=== PATIENT | male | born 1945 | race Caucasian/White ===

== ENCOUNTER 2022-01-06 13:48 | Outpatient (CLI) | payer MEDICARE | END 2022-01-06 13:49 | disposition home or self-care (01) | LOC: BICCT 13:48 | PROVIDERS: ATTEND Nurse Practitioner Adult Health | DX: R47.89 Other speech disturbances (principal); R26.89 Other abnormalities of gait and mobility; R51.9 Headache, unspecified | CPT/HCPCS: 70450 ==

== ENCOUNTER 2022-01-18 13:01 | Inpatient (IN) | payer MEDICARE ==
[2022-01-18 13:45] LABS: Hemoglobin 12.9 g/dL (14.0-18.0); Mean Corpuscular Hemoglobin 33.2 pg (27.0-31.0); Mean Corpuscular Volume 97.6 fL (78.0-98.0); Mean Platelet Volume 6.7 fL (7.4-10.4); Platelet Count 192 thou/uL (130-400); RBC Distribution Width 12.7 % (11.5-14.5); Red Blood Cell (RBC) Count 3.87 mill/uL (4.70-6.10); White Blood Cell (WBC) Count 5.5 thou/uL (4.8-10.8)
[2022-01-18 13:49] LABS: ALT (SGPT) 19 U/L (8-55); AST (SGOT) 26 U/L (5-34); Albumin 3.7 g/dL (3.4-4.8); Alkaline Phosphatase 78 U/L (40-110); Anion Gap 11 mmol/L (10-20); BUN (Urea Nitrogen) 29 mg/dL (8.4-25.7); Bilirubin, Total 0.9 mg/dL (0.2-1.2); Calc. Creatinine Clearance 0 mL/min (70-130); Carbon Dioxide 27 mmol/L (23-31); Chloride 101 mmol/L (98-107); Globulin 3.3 g/dL (2.4-3.5); Glucose 99 mg/dL (83-110); Lipase 27 U/L (8-78); Potassium 4.4 mmol/L (3.5-5.1); Sodium 135 mmol/L (136-145)
[2022-01-18 13:53] LABS: Calcium 13.1 mg/dL (7.8-10.44)
[2022-01-18 14:01] LABS: Band 3 % (5-11); Eosinophils 7 % (0-10); Lymphocytes 11 % (21-51); MDiff Complete? YES; Monocytes 20 % (0-10); Neutrophil 53 % (42-75); Platelet Morphology Comment Appears Adequate; Polychromasia SLIGHT = 2-3 cells (100X) (0-2/hpf); Reactive Lymphocytes 6 % (0-10)
[2022-01-18 14:17] LABS: CKMB 3.9 ng/mL (0-6.6)
[2022-01-18 14:50] LABS: Actual Bicarbonate (HCO3v) 26 mEq/L (22-28); Analyzer IN Cardio ER; Base Excess 1.2 mEq/L (-2.0 to +3.0); Chloride (VBG) 103 mmol/L (98-106); Hemoglobin (Hb) 13.5 g/dL (12.6-17.4); Potassium (VBG) 4.26 mmol/L (3.70-5.30); Sodium 137.4 mmol/L (133-146); pH (venous) 7.43 (7.32-7.43)
[2022-01-18] MEDS ORDERED: Aspirin Chewable 81 MG TAB ONE (14:55)
[2022-01-18 15:10] LABS: Bacteria/HPF None Seen HPF (None Seen); Bilirubin Negative (Negative); Blood, Urine Trace (Negative); Clarity Clear (Clear); Glucose, Urine (Dipstick) Normal (Negative); Ketone, Urine Negative (Negative); Leukocyte Negative Leu/uL (Negative); Nitrite Negative (Negative); Protein, Urine (Dipstick) Negative (Neg-Trace); RBC/HPF 0-3 HPF (0-3); Specific Gravity, Urine 1.005 (1.002-1.036); Squamous Epithelial None Seen HPF (0-3); Urobilinogen Normal mg/dL (Less than 2); pH, Urine 6.5 (5.0-9.0)
[2022-01-18] MEDS ORDERED: HYDROcodone/Acetaminophen 5/325 mg Tablet PO PRN (16:09)
[2022-01-18] MEDS ORDERED: Acetaminophen 325 MG TAB PO PRN (16:09)
[2022-01-18 16:11] LABS: Creatinine, Urine 26.29 mg/dL (63-166); Protein, Urine Random Quant Less than 10 mg/dL (1-14); Sodium, Urine 40 mmol/L (Not Available); Urea Nitrogen, Random Urine 144 mg/dl
[2022-01-18] MEDS ORDERED: hydrALAZINE 20 MG/ML VIAL SLOW IVP PRN (16:14)
[2022-01-18] MEDS ORDERED: Calcitonin,Synthetic 200 UNITS/ML MDV SC SCH ×2 (16:15→21:30)
[2022-01-18] MEDS ORDERED: CALCITONIN SALMON SYNTHETIC SC SCH ×2 (16:30→21:30)
[2022-01-18] MEDS ORDERED: PRE FILLED SC SCH (16:30)
[2022-01-18] MEDS ORDERED: Amlodipine 5 MG TAB PO SCH (16:30)
[2022-01-18 18:00] VITALS: BMI 34.4
[2022-01-18] MEDS: Sodium Chloride 0.9% 1,000 ML IV SCH (18:07)
[2022-01-18 20:35] LABS: Anion Gap 12 mmol/L (10-20); BUN (Urea Nitrogen) 28 mg/dL (8.4-25.7); Calc. Creatinine Clearance 28 mL/min (70-130); Carbon Dioxide 25 mmol/L (23-31); Chloride 105 mmol/L (98-107); Glucose 105 mg/dL (83-110); Potassium 4.4 mmol/L (3.5-5.1); Sodium 138 mmol/L (136-145)
[2022-01-18 20:41] LABS: Calcium 12.6 mg/dL (7.8-10.44)
[2022-01-18 20:42] LABS: Troponin I 0.113 ng/mL (< 0.028)
[2022-01-19] MEDS: Sodium Chloride 0.9% 1,000 ML IV SCH ×3 (04:21→19:38)
[2022-01-19 06:16] LABS: ALT (SGPT) 20 U/L (8-55); AST (SGOT) 30 U/L (5-34); Albumin 3.5 g/dL (3.4-4.8); Alkaline Phosphatase 69 U/L (40-110); Anion Gap 9 mmol/L (10-20); BUN (Urea Nitrogen) 29 mg/dL (8.4-25.7); Bilirubin, Total 0.9 mg/dL (0.2-1.2); Calc. Creatinine Clearance 29 mL/min (70-130); Calcium 11.7 mg/dL (7.8-10.44); Carbon Dioxide 27 mmol/L (23-31); Chloride 107 mmol/L (98-107); Globulin 3.2 g/dL (2.4-3.5); Glucose 105 mg/dL (83-110); Potassium 4.1 mmol/L (3.5-5.1); Protein, Total 6.7 g/dL (5.8-8.1); Sodium 139 mmol/L (136-145)
[2022-01-19] MEDS ORDERED: Meclizine HCl 25 MG TAB PO PRN (07:52)
[2022-01-19] MEDS ORDERED: FISH OIL PO SCH (08:00)
[2022-01-19] MEDS ORDERED: [UNRECOGNIZED DRUG - OTHER] PO SCH (08:00)
[2022-01-19] MEDS ORDERED: FATTY ACIDS PO SCH (08:00)
[2022-01-19] MEDS ORDERED: OMEGA PO SCH (08:00)
[2022-01-19 08:33] LABS: SARS-CoV-2 PCR by NAA Not Detected (NotDetected)
[2022-01-19] MEDS: Aspirin 81 mg Enteric Coated Tablet PO SCH (08:56)
[2022-01-19] MEDS: Amlodipine 10 MG TAB PO SCH (08:57)
[2022-01-19] MEDS: Colchicine 0.6 MG TAB PO SCH (08:57)
[2022-01-19] MEDS: Enoxaparin Sodium 30 MG/0.3 ML SYRINGE SC SCH (08:57)
[2022-01-19] MEDS ORDERED: FLAXSEED OIL 1000 MG PO SCH ×2 (09:00)
[2022-01-19] MEDS ORDERED: Famotidine 20 MG TAB PO SCH (09:00)
[2022-01-19] MEDS ORDERED: Non-Formulary Item 1 EACH (Prednisolone Acetate/Pf [Prednisolone Acet 1% Eye Drop] 5 ML D OP SCH (09:00)
[2022-01-19] MEDS ORDERED: Amlodipine 5 MG TAB PO SCH ×2 (09:00)
[2022-01-19] MEDS ORDERED: Colchicine 0.6 MG TAB PO SCH (09:00)
[2022-01-19] MEDS ORDERED: Levothyroxine 175 MCG TAB PO SCH (09:00)
[2022-01-19 10:13] LABS: Reference Lab Name LABCORP
[2022-01-19] MEDS: prednisoLONE Acet 0.12% Ophth Soln 5 ml Bottle EA EYE SCH ×2 (10:17→21:19)
[2022-01-19] MEDS: Fish Oil 1,000 MG CAP PO SCH ×2 (15:25→17:46)
[2022-01-19] MEDS: Doxazosin Mesylate 4 MG TAB PO SCH (21:18)
[2022-01-20] MEDS: Sodium Chloride 0.9% 1,000 ML IV SCH ×3 (02:14→15:44)
[2022-01-20] MEDS: Levothyroxine 175 MCG TAB PO SCH (05:13)
[2022-01-20 08:19] LABS: Albumin 3.3 g/dL (3.4-4.8); Anion Gap 11 mmol/L (10-20); BUN (Urea Nitrogen) 28 mg/dL (8.4-25.7); BUN/Creatinine Ratio 9.93; Calc. Creatinine Clearance 30 mL/min (70-130); Calcium 10.5 mg/dL (7.8-10.44); Carbon Dioxide 21 mmol/L (23-31); Chloride 111 mmol/L (98-107); Glucose 86 mg/dL (83-110); Phosphorus 2.5 mg/dL (2.3-4.7); Potassium 3.8 mmol/L (3.5-5.1); Sodium 139 mmol/L (136-145)
[2022-01-20] MEDS: Enoxaparin Sodium 30 MG/0.3 ML SYRINGE SC SCH (08:56)
[2022-01-20] MEDS: Fish Oil 1,000 MG CAP PO SCH ×3 (08:56→17:29)
[2022-01-20] MEDS: Aspirin 81 mg Enteric Coated Tablet PO SCH (08:57)
[2022-01-20] MEDS: Amlodipine 10 MG TAB PO SCH (08:57)
[2022-01-20] MEDS: Colchicine 0.6 MG TAB PO SCH (08:57)
[2022-01-20] MEDS: prednisoLONE Acet 0.12% Ophth Soln 5 ml Bottle EA EYE SCH ×2 (08:57→19:58)
[2022-01-20] MEDS: Famotidine 20 MG TAB PO SCH (08:58)
[2022-01-20 11:17] LABS: % Free PSA 60.6 % (.); Total PSA 1.6 ng/mL (0.0-4.0)
[2022-01-20] MEDS: Sodium Bicarbonate 75 MEQ in Sodium Chloride 0.45% 1,000 ML IV SCH (17:29)
[2022-01-20] MEDS: Doxazosin Mesylate 4 MG TAB PO SCH (19:58)
[2022-01-21 05:23] LABS: Anion Gap 9 mmol/L (10-20); BUN (Urea Nitrogen) 27 mg/dL (8.4-25.7); BUN/Creatinine Ratio 10.55; Calc. Creatinine Clearance 34 mL/min (70-130); Calcium 10.1 mg/dL (7.8-10.44); Carbon Dioxide 23 mmol/L (23-31); Chloride 111 mmol/L (98-107); Glucose 83 mg/dL (83-110); Phosphorus 2.5 mg/dL (2.3-4.7); Potassium 3.5 mmol/L (3.5-5.1); Sodium 139 mmol/L (136-145)
[2022-01-21] MEDS: Levothyroxine 175 MCG TAB PO SCH (05:33)
[2022-01-21 06:57] LABS: Hemoglobin 11.4 g/dL (14.0-18.0); Mean Corpuscular HGB CONC 34.3 g/dL (32.0-36.0); Mean Corpuscular Hemoglobin 33.9 pg (27.0-31.0); Mean Corpuscular Volume 98.8 fL (78.0-98.0); Mean Platelet Volume 7.1 fL (7.4-10.4); Platelet Count 149 thou/uL (130-400); RBC Distribution Width 12.8 % (11.5-14.5); Red Blood Cell (RBC) Count 3.36 mill/uL (4.70-6.10); White Blood Cell (WBC) Count 4.9 thou/uL (4.8-10.8)
[2022-01-21] MEDS: Aspirin 81 mg Enteric Coated Tablet PO SCH (08:19)
[2022-01-21] MEDS: Fish Oil 1,000 MG CAP PO SCH ×3 (08:19→16:12)
[2022-01-21] MEDS: Enoxaparin Sodium 30 MG/0.3 ML SYRINGE SC SCH (08:19)
[2022-01-21] MEDS: Amlodipine 10 MG TAB PO SCH (08:19)
[2022-01-21] MEDS: Colchicine 0.6 MG TAB PO SCH (08:19)
[2022-01-21] MEDS: Famotidine 20 MG TAB PO SCH (08:19)
[2022-01-21] MEDS: prednisoLONE Acet 0.12% Ophth Soln 5 ml Bottle EA EYE SCH ×2 (08:20→20:19)
[2022-01-21] MEDS: Sodium Bicarbonate 75 MEQ in Sodium Chloride 0.45% 1,000 ML IV SCH (11:16)
[2022-01-21] MEDS: Doxazosin Mesylate 4 MG TAB PO SCH (20:18)
[2022-01-22] MEDS: Sodium Bicarbonate 75 MEQ in Sodium Chloride 0.45% 1,000 ML IV SCH (00:58)
[2022-01-22] MEDS: Levothyroxine 175 MCG TAB PO SCH (05:18)
[2022-01-22 06:16] LABS: Albumin 2.9 g/dL (3.4-4.8); Anion Gap 10 mmol/L (10-20); BUN (Urea Nitrogen) 24 mg/dL (8.4-25.7); BUN/Creatinine Ratio 9.52; Calc. Creatinine Clearance 34 mL/min (70-130); Calcium 10.2 mg/dL (7.8-10.44); Carbon Dioxide 25 mmol/L (23-31); Chloride 109 mmol/L (98-107); Glucose 77 mg/dL (83-110); Potassium 3.6 mmol/L (3.5-5.1); Sodium 140 mmol/L (136-145)
[2022-01-22] MEDS: prednisoLONE Acet 0.12% Ophth Soln 5 ml Bottle EA EYE SCH ×2 (08:09→20:33)
[2022-01-22] MEDS: Fish Oil 1,000 MG CAP PO SCH ×3 (08:10→17:20)
[2022-01-22] MEDS: Colchicine 0.6 MG TAB PO SCH (08:10)
[2022-01-22] MEDS: Famotidine 20 MG TAB PO SCH (08:10)
[2022-01-22] MEDS: Enoxaparin Sodium 30 MG/0.3 ML SYRINGE SC SCH (08:10)
[2022-01-22] MEDS: Amlodipine 10 MG TAB PO SCH (08:10)
[2022-01-22] MEDS: Aspirin 81 mg Enteric Coated Tablet PO SCH (08:10)
[2022-01-22 08:44] LABS: Magnesium 1.4 mg/dL (1.6-2.6)
[2022-01-22] MEDS ORDERED: Magnesium Sulfate In Water 4 GM in Premix Bag 1 BAG IVPB SCH (10:45)
[2022-01-22] MEDS: Lactated Ringer's 1,000 ML IV SCH ×2 (17:19)
[2022-01-22] MEDS: Doxazosin Mesylate 4 MG TAB PO SCH (20:31)
[2022-01-23] MEDS: Lactated Ringer's 1,000 ML IV SCH (01:16)
[2022-01-23 03:03] LABS: Troponin I 0.114 ng/mL (< 0.028)
[2022-01-23 03:33] VITALS: TEMP 97.8
[2022-01-23 03:40] LABS: Albumin 3.1 g/dL (3.4-4.8); Anion Gap 11 mmol/L (10-20); BUN (Urea Nitrogen) 26 mg/dL (8.4-25.7); BUN/Creatinine Ratio 10.04; Calc. Creatinine Clearance 33 mL/min (70-130); Calcium 10.5 mg/dL (7.8-10.44); Carbon Dioxide 24 mmol/L (23-31); Chloride 108 mmol/L (98-107); Glucose 84 mg/dL (83-110); Potassium 3.6 mmol/L (3.5-5.1); Sodium 139 mmol/L (136-145)
[2022-01-23] MEDS: Levothyroxine 175 MCG TAB PO SCH (06:38)
[2022-01-23] MEDS ORDERED: Zoledronic Acid 4 MG in Sodium Chloride 0.9% 100 ML IVPB SCH (06:45)
[2022-01-23 08:03] VITALS: BP 132/63
[2022-01-23] MEDS: Aspirin 81 mg Enteric Coated Tablet PO SCH (08:50)
[2022-01-23] MEDS: Amlodipine 10 MG TAB PO SCH (08:50)
[2022-01-23] MEDS: Fish Oil 1,000 MG CAP PO SCH (08:51)
[2022-01-23] MEDS: prednisoLONE Acet 0.12% Ophth Soln 5 ml Bottle EA EYE SCH (08:51)
[2022-01-23] MEDS: Enoxaparin Sodium 30 MG/0.3 ML SYRINGE SC SCH (08:51)
[2022-01-23] MEDS: Famotidine 20 MG TAB PO SCH (08:51)
[2022-01-23] MEDS: Colchicine 0.6 MG TAB PO SCH (08:51)
== END 2022-01-23 11:35 | disposition home or self-care (01) | DRG 640 ==
LOC: ERS 13:01 → NEURO 15:18
PROVIDERS: ADMIT Family Medicine; ATTEND Internal Medicine
DX: E83.52 Hypercalcemia (principal); Z20.822 Contact with and (suspected) exposure to COVID-19; G93.41 Metabolic encephalopathy; E87.1 Hypo-osmolality and hyponatremia; N17.9 Acute kidney failure, unspecified; E87.2 Acidosis; N18.30 Chronic kidney disease, stage 3 unspecified; E88.09 Other disorders of plasma-protein metabolism, not elsewhere classified; E03.9 Hypothyroidism, unspecified; I25.10 Atherosclerotic heart disease of native coronary artery without angina pectoris; I12.9 Hypertensive chronic kidney disease with stage 1 through stage 4 chronic kidney disease, or unspecified chronic kidney disease; E83.42 Hypomagnesemia; E86.9 Volume depletion, unspecified; R60.0 Localized edema; R94.6 Abnormal results of thyroid function studies; R79.89 Other specified abnormal findings of blood chemistry; R00.1 Bradycardia, unspecified; Z91.040 Latex allergy status; Z91.013 Allergy to seafood; Z91.09 Other allergy status, other than to drugs and biological substances; Z79.899 Other long term (current) drug therapy; Z79.890 Hormone replacement therapy; Z90.49 Acquired absence of other specified parts of digestive tract; Z95.5 Presence of coronary angioplasty implant and graft; Z98.890 Other specified postprocedural states
CPT/HCPCS: 36415; 70450; 71045; 71046; 74176; 78451; 80053; 80069; 81003; 81015; 82306; 82340; 82550; 82553; 82570; 82652; 82805; 83605; 83690; 83735; 83880; 83970; 84153; 84154; 84156; 84300; 84439; 84443; 84484; 84540; 85025; 85027; 85379; 93005; 93010; 93306; A9540; J0630; J1650; J3475; J3489; J3490; J7050; J7120; U0003; U0005

== ENCOUNTER 2022-04-12 15:48 | Inpatient (IN) | payer MEDICARE ==
[2022-04-12 16:21] LABS: #Eosinphils 0.4 thou/uL (0.0-0.7); #Lymphocytes 1.3 thou/uL (1.20-3.40); #Monocytes 0.7 thou/uL (0.11-0.59); #Neutrophils 2.6 thou/uL (1.40-6.50); %Basophils 0.9 % (0.0-1.0); %Eosinophils 7.9 % (0.0-10.0); %Lymphocytes 25.9 % (21.0-51.0); %Monocytes 13.7 % (0.0-10.0); %Neutrophils 51.5 % (42.0-75.0); Hemoglobin 11.7 g/dL (14.0-18.0); Mean Corpuscular Hemoglobin 33.2 pg (27.0-31.0); Mean Corpuscular Volume 97.4 fL (78.0-98.0); Mean Platelet Volume 6.8 fL (7.4-10.4); Platelet Count 190 thou/uL (130-400); RBC Distribution Width 12.5 % (11.5-14.5); Red Blood Cell (RBC) Count 3.52 mill/uL (4.70-6.10)
[2022-04-12 16:40] LABS: ALT (SGPT) 20 U/L (8-55); AST (SGOT) 27 U/L (5-34); Albumin 3.6 g/dL (3.4-4.8); Alkaline Phosphatase 84 U/L (40-110); Anion Gap 11 mmol/L (10-20); BUN (Urea Nitrogen) 37 mg/dL (8.4-25.7); Bilirubin, Total 0.4 mg/dL (0.2-1.2); Calc. Creatinine Clearance 0 mL/min (70-130); Carbon Dioxide 26 mmol/L (23-31); Chloride 103 mmol/L (98-107); Estimated GFR 13; Globulin 3.5 g/dL (2.4-3.5); Glucose 126 mg/dL (83-110); Potassium 4.3 mmol/L (3.5-5.1); Protein, Total 7.1 g/dL (5.8-8.1); Sodium 136 mmol/L (136-145)
[2022-04-12 16:45] LABS: Calcium 13.4 mg/dL (7.8-10.44)
[2022-04-12 17:43] LABS: Bacteria/HPF None Seen HPF (None Seen); Bilirubin Negative (Negative); Blood, Urine 2+ (Negative); Clarity Clear (Clear); Glucose, Urine (Dipstick) Normal (Negative); Ketone, Urine Negative (Negative); Leukocyte Negative Leu/uL (Negative); Nitrite Negative (Negative); Protein, Urine (Dipstick) 10 mg/dL (Neg-Trace); RBC/HPF 0-3 HPF (0-3); Specific Gravity, Urine 1.005 (1.002-1.036); Squamous Epithelial None Seen HPF (0-3); Urobilinogen Normal mg/dL (Less than 2); WBC/HPF 0-3 HPF (0-3)
[2022-04-12] MEDS ORDERED: Bisacodyl 10 MG SUPP PR PRN (20:02)
[2022-04-12] MEDS ORDERED: Bisacodyl 5 MG TAB PO PRN (20:02)
[2022-04-12] MEDS ORDERED: Ondansetron ODT 4 MG TAB PO PRN (20:02)
[2022-04-12] MEDS ORDERED: Guaifenesin DM 100-10/5 ML UDCUP PO PRN (20:02)
[2022-04-12] MEDS ORDERED: Ondansetron PF 4 MG/2 ML Vial IVP PRN (20:02)
[2022-04-12] MEDS ORDERED: Acetaminophen 325 MG TAB PO PRN (20:02)
[2022-04-12] MEDS ORDERED: Senokot S 8.6-50 MG TAB PO PRN (20:02)
[2022-04-12] MEDS ORDERED: Acetaminophen 650 MG Suppository PR PRN (20:02)
[2022-04-12] MEDS ORDERED: Calcitonin,Synthetic 200 UNITS/ML MDV SC SCH (20:15)
[2022-04-12] MEDS ORDERED: Sodium Chloride 0.9% 1,000 ML IV SCH (20:15)
[2022-04-12 21:24] VITALS: BMI 33.9
[2022-04-12] MEDS: Heparin 5,000 UNITS/ML VIAL SC SCH (21:51)
[2022-04-13 01:55] LABS: Creatinine, Urine Less than 20.00 mg/dL (63-166); Potassium, Urine Less than 10.0 mmol/L; Protein, Urine Random Quant Less than 10 mg/dL (1-14); Sodium, Urine 57 mmol/L (Not Available); Urea Nitrogen, Random Urine 97 mg/dl
[2022-04-13 04:31] LABS: #Basophils 0.1 thou/uL (0.0-0.2); #Eosinphils 0.3 thou/uL (0.0-0.7); #Lymphocytes 1.2 thou/uL (1.20-3.40); #Monocytes 0.8 thou/uL (0.11-0.59); #Neutrophils 4.8 thou/uL (1.40-6.50); %Basophils 0.9 % (0.0-1.0); %Eosinophils 4.3 % (0.0-10.0); %Monocytes 11.2 % (0.0-10.0); %Neutrophils 66.6 % (42.0-75.0); Hemoglobin 12.1 g/dL (14.0-18.0); Mean Corpuscular HGB CONC 34.1 g/dL (32.0-36.0); Mean Corpuscular Hemoglobin 33.6 pg (27.0-31.0); Mean Corpuscular Volume 98.5 fL (78.0-98.0); Mean Platelet Volume 6.9 fL (7.4-10.4); Platelet Count 197 thou/uL (130-400); RBC Distribution Width 12.7 % (11.5-14.5); Red Blood Cell (RBC) Count 3.59 mill/uL (4.70-6.10); White Blood Cell (WBC) Count 7.2 thou/uL (4.8-10.8)
[2022-04-13 04:56] LABS: ALT (SGPT) 17 U/L (8-55); AST (SGOT) 24 U/L (5-34); Albumin 3.4 g/dL (3.4-4.8); Alkaline Phosphatase 69 U/L (40-110); Anion Gap 12 mmol/L (10-20); BUN (Urea Nitrogen) 34 mg/dL (8.4-25.7); Bilirubin, Total 0.5 mg/dL (0.2-1.2); Calc. Creatinine Clearance 20 mL/min (70-130); Carbon Dioxide 22 mmol/L (23-31); Chloride 106 mmol/L (98-107); Estimated GFR 14; Globulin 3.2 g/dL (2.4-3.5); Glucose 104 mg/dL (83-110); Potassium 4.2 mmol/L (3.5-5.1); Protein, Total 6.6 g/dL (5.8-8.1); Sodium 136 mmol/L (136-145)
[2022-04-13 05:00] LABS: Calcium 12.1 mg/dL (7.8-10.44)
[2022-04-13 05:09] LABS: Free T4 (Free Thyroxine) 0.95 ng/dL (0.70-1.48); Thyroid Stimulating Hormone 0.1593 uIU/mL (0.35-4.94)
[2022-04-13 05:11] LABS: Vitamin D, 25 Hydroxy 15.4 ng/ml (> 30.0)
[2022-04-13] MEDS: Sodium Chloride 0.9% 1,000 ML IV SCH ×4 (07:04→23:17)
[2022-04-13] MEDS ORDERED: ZOLEDRONIC ACID IVPB SCH (09:00)
[2022-04-13] MEDS ORDERED: SODIUM CHLORIDE 0.9% IVPB SCH (09:00)
[2022-04-13] MEDS: Sodium Bicarbonate Tab 325 MG TAB PO SCH ×3 (09:39→21:26)
[2022-04-13] MEDS: Heparin 5,000 UNITS/ML VIAL SC SCH ×2 (09:40→21:26)
[2022-04-13] MEDS: Calcitonin,Synthetic 200 UNITS/ML MDV SC SCH (09:41)
[2022-04-14 05:13] LABS: Anion Gap 11 mmol/L (10-20); BUN (Urea Nitrogen) 33 mg/dL (8.4-25.7); BUN/Creatinine Ratio 8.44; Calc. Creatinine Clearance 22 mL/min (70-130); Calcium 10.4 mg/dL (7.8-10.44); Carbon Dioxide 19 mmol/L (23-31); Chloride 110 mmol/L (98-107); Estimated GFR 15; Glucose 79 mg/dL (83-110); Phosphorus 3.3 mg/dL (2.3-4.7); Potassium 3.9 mmol/L (3.5-5.1); Sodium 136 mmol/L (136-145)
[2022-04-14] MEDS: Sodium Bicarbonate 150 MEQ in Dextrose 5% in Water 1,000 ML IV SCH ×2 (09:00→21:51)
[2022-04-14] MEDS: Sodium Bicarbonate Tab 325 MG TAB PO SCH ×3 (09:01→20:53)
[2022-04-14] MEDS: Heparin 5,000 UNITS/ML VIAL SC SCH ×2 (09:01→20:54)
[2022-04-14] MEDS: Calcitonin,Synthetic 200 UNITS/ML MDV SC SCH (09:05)
[2022-04-14] MEDS ORDERED: Amlodipine 5 MG TAB PO SCH (09:45)
[2022-04-14 12:41] LABS: 24 Hr Creatinine 1056.51 mg/24 hr (950-2490); Creatinine, Urine 39.13 mg/dL (63-166)
[2022-04-15 04:50] LABS: Albumin 3.2 g/dL (3.4-4.8); Anion Gap 14 mmol/L (10-20); BUN (Urea Nitrogen) 32 mg/dL (8.4-25.7); BUN/Creatinine Ratio 8.77; Calc. Creatinine Clearance 23 mL/min (70-130); Calcium 10.6 mg/dL (7.8-10.44); Carbon Dioxide 23 mmol/L (23-31); Chloride 103 mmol/L (98-107); Estimated GFR 16; Glucose 91 mg/dL (83-110); Phosphorus 2.8 mg/dL (2.3-4.7); Potassium 3.8 mmol/L (3.5-5.1); Sodium 136 mmol/L (136-145)
[2022-04-15] MEDS: Sodium Bicarbonate 150 MEQ in Dextrose 5% in Water 1,000 ML IV SCH (06:40)
[2022-04-15] MEDS: Amlodipine 5 MG TAB PO SCH (10:26)
[2022-04-15] MEDS: Sodium Bicarbonate Tab 325 MG TAB PO SCH ×3 (10:27→20:36)
[2022-04-15] MEDS: Calcitonin,Synthetic 200 UNITS/ML MDV SC SCH (10:27)
[2022-04-15] MEDS: Heparin 5,000 UNITS/ML VIAL SC SCH ×2 (10:28→20:36)
[2022-04-15] MEDS: Sodium Chloride 0.9% 1,000 ML IV SCH (15:17)
[2022-04-16] MEDS: Sodium Chloride 0.9% 1,000 ML IV SCH ×3 (00:57→20:58)
[2022-04-16 05:00] LABS: Anion Gap 13 mmol/L (10-20); BUN (Urea Nitrogen) 30 mg/dL (8.4-25.7); BUN/Creatinine Ratio 8.55; Calc. Creatinine Clearance 24 mL/min (70-130); Calcium 10.2 mg/dL (7.8-10.44); Carbon Dioxide 22 mmol/L (23-31); Chloride 104 mmol/L (98-107); Estimated GFR 17; Glucose 83 mg/dL (83-110); Phosphorus 2.9 mg/dL (2.3-4.7); Potassium 3.5 mmol/L (3.5-5.1); Sodium 135 mmol/L (136-145)
[2022-04-16] MEDS: Heparin 5,000 UNITS/ML VIAL SC SCH ×2 (09:26→20:58)
[2022-04-16] MEDS: Sodium Bicarbonate Tab 325 MG TAB PO SCH ×3 (09:27→20:57)
[2022-04-16] MEDS: Amlodipine 5 MG TAB PO SCH (09:27)
[2022-04-17 05:27] LABS: Albumin 3.2 g/dL (3.4-4.8); Anion Gap 13 mmol/L (10-20); BUN (Urea Nitrogen) 27 mg/dL (8.4-25.7); BUN/Creatinine Ratio 8.28; Calc. Creatinine Clearance 26 mL/min (70-130); Calcium 9.9 mg/dL (7.8-10.44); Carbon Dioxide 20 mmol/L (23-31); Chloride 107 mmol/L (98-107); Estimated GFR 19; Glucose 73 mg/dL (83-110); Phosphorus 2.7 mg/dL (2.3-4.7); Potassium 3.5 mmol/L (3.5-5.1); Sodium 136 mmol/L (136-145)
[2022-04-17] MEDS ORDERED: Potassium Bicarbonate/Cit Ac 20 MEQ TAB PO SCH (09:30)
[2022-04-17] MEDS: Sodium Bicarbonate Tab 325 MG TAB PO SCH ×3 (10:06→22:00)
[2022-04-17] MEDS: Amlodipine 5 MG TAB PO SCH (10:07)
[2022-04-17 10:14] LABS: Magnesium 1.5 mg/dL (1.6-2.6)
[2022-04-17 12:34] LABS: #Eosinphils 0.2 thou/uL (0.0-0.7); #Lymphocytes 1.2 thou/uL (1.20-3.40); #Monocytes 0.8 thou/uL (0.11-0.59); #Neutrophils 3.7 thou/uL (1.40-6.50); %Basophils 0.6 % (0.0-1.0); %Eosinophils 3.5 % (0.0-10.0); %Lymphocytes 19.8 % (21.0-51.0); %Monocytes 13.8 % (0.0-10.0); %Neutrophils 62.4 % (42.0-75.0); Hemoglobin 10.3 g/dL (14.0-18.0); Mean Corpuscular HGB CONC 33.9 g/dL (32.0-36.0); Mean Corpuscular Hemoglobin 33.3 pg (27.0-31.0); Mean Corpuscular Volume 98.2 fL (78.0-98.0); Mean Platelet Volume 7.2 fL (7.4-10.4); Platelet Count 144 thou/uL (130-400); RBC Distribution Width 12.5 % (11.5-14.5); Red Blood Cell (RBC) Count 3.11 mill/uL (4.70-6.10); White Blood Cell (WBC) Count 5.9 thou/uL (4.8-10.8)
[2022-04-17] MEDS ORDERED: Magnesium 2 GM/50 ML(in water) 2 GM in Premix Bag 1 BAG IVPB SCH (13:15)
[2022-04-17] MEDS: Heparin 5,000 UNITS/ML VIAL SC SCH ×2 (13:58→22:01)
[2022-04-17 17:13] LABS: A/G Ratio 1.1 (0.7-1.7); Albumin 3.1 g/dL (2.9-4.4); Alpha 1 0.2 g/dL (0.0-0.4); Alpha 2 0.6 g/dL (0.4-1.0); Beta 0.7 g/dL (0.7-1.3); Gamma 1.3 g/dL (0.4-1.8); Globulin, Total 2.8 g/dL (2.2-3.9); M-Spike Not Observed g/dL (Not Observed)
[2022-04-17 17:13] LABS: Albumin, PEP 24hr Ur 17.5 % (NOT ESTAB.); Alpha-1-Globulin, PEP 24h Ur 6.8 % (NOT ESTAB.); Alpha-2-Globulin, PEP 24h Ur 18.9 % (NOT ESTAB.); Beta Globulin, PEP 24h Ur 39.1 % (NOT ESTAB.); Gamma Globulin, PEP 24h Ur 17.6 % (NOT ESTAB.); M-Spike, mg/24hr PEP Ur 98.4 mg/24 hr (Not Observed); M-Spike,% PEP 24hr Ur 26.4 % (Not Observed); Protein, Urine 13.8 mg/dL (Not Estab.)
[2022-04-17] MEDS: Sodium Chloride 0.9% 1,000 ML IV SCH (18:46)
[2022-04-18 05:13] LABS: Anion Gap 14 mmol/L (10-20); BUN (Urea Nitrogen) 30 mg/dL (8.4-25.7); BUN/Creatinine Ratio 8.82; Calc. Creatinine Clearance 25 mL/min (70-130); Carbon Dioxide 20 mmol/L (23-31); Chloride 105 mmol/L (98-107); Estimated GFR 18; Glucose 83 mg/dL (83-110); Phosphorus 2.1 mg/dL (2.3-4.7); Potassium 3.3 mmol/L (3.5-5.1); Sodium 136 mmol/L (136-145)
[2022-04-18] MEDS ORDERED: ceFAZolin 2 GM/Dextrose 50 ML IVPB ONE (06:42)
[2022-04-18] MEDS ORDERED: CEFAZOLIN 1 GM VIAL ONE (06:42)
[2022-04-18] MEDS ORDERED: Gentamicin 80 MG/2 ML VIAL ONE (06:42)
[2022-04-18] MEDS ORDERED: Lidocaine 1% (PF) 30 ML VIAL ONE (07:09)
[2022-04-18] MEDS ORDERED: Midazolam HCl 2 mg/2 ml Vial ONE (07:18)
[2022-04-18] MEDS: Potassium Bicarbonate/Cit Ac 20 MEQ TAB PO SCH ×2 (08:52→18:12)
[2022-04-18] MEDS: Nebivolol HCl 5 MG TAB PO SCH (08:53)
[2022-04-18] MEDS: Sodium Bicarbonate Tab 325 MG TAB PO SCH ×3 (08:53→21:49)
[2022-04-18] MEDS: PHOS-NAK 1 PKT PACK PO SCH ×4 (10:22→21:49)
[2022-04-19 04:54] LABS: Albumin 3.2 g/dL (3.4-4.8); Anion Gap 14 mmol/L (10-20); BUN (Urea Nitrogen) 26 mg/dL (8.4-25.7); BUN/Creatinine Ratio 7.72; Calc. Creatinine Clearance 25 mL/min (70-130); Calcium 9.9 mg/dL (7.8-10.44); Carbon Dioxide 20 mmol/L (23-31); Chloride 106 mmol/L (98-107); Estimated GFR 18; Glucose 89 mg/dL (83-110); Phosphorus 2.3 mg/dL (2.3-4.7); Potassium 3.6 mmol/L (3.5-5.1); Sodium 136 mmol/L (136-145)
[2022-04-19 08:09] LABS: INR-International Normal Ratio 1.1; Prothrombin Time 13.8 sec (12.0-14.7)
[2022-04-19 08:10] LABS: PTT 40.6 sec (22.9-36.1)
[2022-04-19] MEDS ORDERED: Sodium Bicarbonate 2.5 MEQ/5 ML VIAL ONE (08:45)
[2022-04-19] MEDS ORDERED: Midazolam HCl 2 mg/2 ml Vial ONE (08:45)
[2022-04-19] MEDS ORDERED: Fentanyl 100 MCG/2 ML VIAL ONE (08:45)
[2022-04-19] MEDS ORDERED: Potassium Bicarbonate/Cit Ac 20 MEQ TAB PO SCH (09:15)
[2022-04-19] MEDS: Sodium Bicarbonate Tab 325 MG TAB PO SCH (09:57)
[2022-04-19] MEDS: Nebivolol HCl 5 MG TAB PO SCH (09:57)
[2022-04-19 11:47] VITALS: BP 162/84; TEMP 98.6
[2022-04-19 16:13] LABS: Kappa Lambda Light Chain Ratio 1.64 (0.26-1.65); Kappa Light Chains 90.3 mg/L (3.3-19.4); Lambda Light Chain 55.1 mg/L (5.7-26.3)
[2022-04-20 19:13] LABS: QuantiFERON-TB Gold Plus Negative (Negative)
[2022-04-21 14:38] LABS: IgA - Total IgA (Sendout) 294 mg/dL (61-437); Immunoglobulin - G (Sendout) 1368 mg/dL (603-1613); Immunoglobulin - M (Sendout) 128 mg/dL (15-143)
== END 2022-04-19 13:30 | disposition home or self-care (01) | DRG 982 ==
LOC: ERS 15:48 → 2NO 19:04
PROVIDERS: ADMIT Internal Medicine; ATTEND Internal Medicine
PROC: 0JH606Z Insertion of Pacemaker, Dual Chamber into Chest Subcutaneous Tissue and Fascia, Open Approach (ICD-10-PCS; principal; 2022-04-18)
PROC: 02H63JZ Insertion of Pacemaker Lead into Right Atrium, Percutaneous Approach (ICD-10-PCS; 2022-04-18)
PROC: 02HK3JZ Insertion of Pacemaker Lead into Right Ventricle, Percutaneous Approach (ICD-10-PCS; 2022-04-18)
PROC: 07DR3ZX Extraction of Iliac Bone Marrow, Percutaneous Approach, Diagnostic (ICD-10-PCS; 2022-04-19)
PROC: 079T3ZX Drainage of Bone Marrow, Percutaneous Approach, Diagnostic (ICD-10-PCS; 2022-04-19)
DX: N17.9 Acute kidney failure, unspecified (principal); I50.32 Chronic diastolic (congestive) heart failure; I13.0 Hypertensive heart and chronic kidney disease with heart failure and stage 1 through stage 4 chronic kidney disease, or unspecified chronic kidney disease; E87.2 Acidosis; C90.00 Multiple myeloma not having achieved remission; Z20.822 Contact with and (suspected) exposure to COVID-19; E83.52 Hypercalcemia; I25.10 Atherosclerotic heart disease of native coronary artery without angina pectoris; R91.1 Solitary pulmonary nodule; R00.1 Bradycardia, unspecified; E87.6 Hypokalemia; E83.39 Other disorders of phosphorus metabolism; E83.42 Hypomagnesemia; K21.9 Gastro-esophageal reflux disease without esophagitis; N18.4 Chronic kidney disease, stage 4 (severe); E03.9 Hypothyroidism, unspecified; I25.2 Old myocardial infarction; Z95.5 Presence of coronary angioplasty implant and graft; Z90.49 Acquired absence of other specified parts of digestive tract; Z91.048 Other nonmedicinal substance allergy status; Z91.040 Latex allergy status; Z91.013 Allergy to seafood; Z79.899 Other long term (current) drug therapy; Z79.82 Long term (current) use of aspirin; Z79.02 Long term (current) use of antithrombotics/antiplatelets; Z79.890 Hormone replacement therapy; Z79.52 Long term (current) use of systemic steroids; Z82.49 Family history of ischemic heart disease and other diseases of the circulatory system; Z82.3 Family history of stroke; Z83.3 Family history of diabetes mellitus
CPT/HCPCS: 33208; 36415; 38222; 71045; 71250; 76770; 77002; 77075; 80048; 80053; 80069; 81003; 81015; 82164; 82232; 82306; 82436; 82570; 83735; 83883; 83970; 84133; 84155; 84156; 84165; 84166; 84300; 84439; 84443; 84540; 85025; 85097; 85610; 85652; 85730; 86140; 86334; 86480; 88184; 88185; 88237; 88264; 88280; 88305; 88311; 88313; 88341; 88342; 88365; 93005; 93010; 93798; 96360; 99152; 99153; C1785; C1898; J0630; J0690; J1580; J1644; J2001; J2250; J2405; J3010; J3475; J3489; J7050; J7070; U0003; U0005

== ENCOUNTER 2022-05-06 09:16 | Inpatient (IN) | payer MEDICARE, OTHER ==
[2022-05-06] MEDS ORDERED: Furosemide 20 MG/2 ML VIAL ONE (10:17)
[2022-05-06 10:31] LABS: #Basophils 0.1 thou/uL (0.0-0.2); #Eosinphils 0.4 thou/uL (0.0-0.7); #Lymphocytes 1.5 thou/uL (1.20-3.40); #Monocytes 0.6 thou/uL (0.11-0.59); #Neutrophils 3.1 thou/uL (1.40-6.50); %Basophils 1.1 % (0.0-1.0); %Eosinophils 6.4 % (0.0-10.0); %Lymphocytes 25.6 % (21.0-51.0); %Monocytes 11.4 % (0.0-10.0); %Neutrophils 55.6 % (42.0-75.0); Hemoglobin 11.1 g/dL (14.0-18.0); Mean Corpuscular Hemoglobin 34.7 pg (27.0-31.0); Mean Corpuscular Volume 99.1 fL (78.0-98.0); Mean Platelet Volume 6.9 fL (7.4-10.4); Platelet Count 169 thou/uL (130-400); RBC Distribution Width 13.5 % (11.5-14.5); Red Blood Cell (RBC) Count 3.21 mill/uL (4.70-6.10); White Blood Cell (WBC) Count 5.7 thou/uL (4.8-10.8)
[2022-05-06 10:53] LABS: ALT (SGPT) 14 U/L (8-55); AST (SGOT) 24 U/L (5-34); Albumin 3.5 g/dL (3.4-4.8); Alkaline Phosphatase 85 U/L (40-110); Anion Gap 13 mmol/L (10-20); BUN (Urea Nitrogen) 29 mg/dL (8.4-25.7); Bilirubin, Total 0.5 mg/dL (0.2-1.2); Calc. Creatinine Clearance 0 mL/min (70-130); Calcium 11.1 mg/dL (7.8-10.44); Carbon Dioxide 25 mmol/L (23-31); Chloride 103 mmol/L (98-107); Estimated GFR 13; Globulin 3.3 g/dL (2.4-3.5); Glucose 158 mg/dL (83-110); Potassium 3.4 mmol/L (3.5-5.1); Protein, Total 6.8 g/dL (5.8-8.1); Sodium 138 mmol/L (136-145)
[2022-05-06] MEDS ORDERED: Acetaminophen 325 MG TAB PO PRN (13:28)
[2022-05-06] MEDS ORDERED: Ondansetron ODT 4 MG TAB PO PRN (13:28)
[2022-05-06] MEDS ORDERED: Ondansetron PF 4 MG/2 ML Vial IVP PRN (13:28)
[2022-05-06] MEDS ORDERED: Fluticasone Propionate Nasal Spray 16 gm Bottle NASAL PRN (13:33)
[2022-05-06] MEDS ORDERED: Potassium Chloride 20 MEQ TAB PO SCH (13:52)
[2022-05-06 14:01] LABS: INR-International Normal Ratio 1.1; PTT 32.8 sec (22.9-36.1); Prothrombin Time 14.2 sec (12.0-14.7)
[2022-05-06 14:03] LABS: Phosphorus 3.1 mg/dL (2.3-4.7)
[2022-05-06] MEDS ORDERED: Alirocumab [Praluent Pen] 150 MG/ML Pen.Injctr SC SCH (14:15)
[2022-05-06 14:30] VITALS: BMI 33.5
[2022-05-06 14:50] LABS: SARS-CoV-2 NAA Rapid Test Not Detected (NotDetected)
[2022-05-06 15:19] LABS: Troponin I 0.109 ng/mL (< 0.028)
[2022-05-06] MEDS: Sodium Bicarbonate Tab 325 MG TAB PO SCH ×2 (15:34→20:39)
[2022-05-06] MEDS ORDERED: predniSONE 20 MG TAB PO SCH (15:45)
[2022-05-06] MEDS ORDERED: Nebivolol HCl 5 MG TAB PO SCH (15:48)
[2022-05-06] MEDS: hydrALAZINE 20 MG/ML VIAL SLOW IVP PRN (16:40)
[2022-05-06] MEDS ORDERED: Amlodipine 5 MG TAB PO SCH ×2 (17:30)
[2022-05-06] MEDS ORDERED: Sodium Chloride 0.9% 1,000 ML IV SCH (18:30)
[2022-05-06] MEDS: Doxazosin Mesylate 4 MG TAB PO SCH (20:41)
[2022-05-06] MEDS: Famotidine 20 MG TAB PO SCH (20:42)
[2022-05-06] MEDS ORDERED: Clopidogrel Bisulfate 75 MG TAB PO SCH ×2 (21:00)
[2022-05-07] MEDS: hydrALAZINE 20 MG/ML VIAL SLOW IVP PRN (02:56)
[2022-05-07 05:00] LABS: #Lymphocytes 1.4 thou/uL (1.20-3.40); #Monocytes 0.2 thou/uL (0.11-0.59); #Neutrophils 4.9 thou/uL (1.40-6.50); %Basophils 0.2 % (0.0-1.0); %Eosinophils 0.2 % (0.0-10.0); %Monocytes 3.1 % (0.0-10.0); %Neutrophils 74.5 % (42.0-75.0); Hemoglobin 12.5 g/dL (14.0-18.0); Mean Corpuscular HGB CONC 35.2 g/dL (32.0-36.0); Mean Corpuscular Hemoglobin 34.8 pg (27.0-31.0); Mean Corpuscular Volume 98.8 fL (78.0-98.0); Mean Platelet Volume 6.8 fL (7.4-10.4); Platelet Count 191 thou/uL (130-400); RBC Distribution Width 13.7 % (11.5-14.5); Red Blood Cell (RBC) Count 3.58 mill/uL (4.70-6.10); White Blood Cell (WBC) Count 6.5 thou/uL (4.8-10.8)
[2022-05-07 05:06] LABS: Anion Gap 17 mmol/L (10-20); BUN (Urea Nitrogen) 30 mg/dL (8.4-25.7); Calc. Creatinine Clearance 20 mL/min (70-130); Calcium 11.5 mg/dL (7.8-10.44); Carbon Dioxide 21 mmol/L (23-31); Chloride 104 mmol/L (98-107); Estimated GFR 14; Glucose 139 mg/dL (83-110); Potassium 3.8 mmol/L (3.5-5.1); Sodium 138 mmol/L (136-145)
[2022-05-07] MEDS: Sodium Bicarbonate 50 MEQ in Sodium Chloride 0.45% 1,000 ML IV SCH ×2 (08:16→18:42)
[2022-05-07] MEDS: Sodium Bicarbonate Tab 325 MG TAB PO SCH ×3 (08:23→20:29)
[2022-05-07] MEDS: Colchicine 0.6 MG TAB PO SCH (08:23)
[2022-05-07] MEDS: Levothyroxine 150 MCG TAB PO SCH (08:24)
[2022-05-07] MEDS: Amlodipine 10 MG TAB PO SCH (08:25)
[2022-05-07] MEDS: Nebivolol HCl 5 MG TAB PO SCH (08:25)
[2022-05-07] MEDS: Fish Oil 1,000 MG CAP PO SCH (08:25)
[2022-05-07] MEDS: Famotidine 20 MG TAB PO SCH ×2 (08:25→20:30)
[2022-05-07] MEDS ORDERED: Aspirin 81 mg Enteric Coated Tablet PO SCH ×2 (09:00)
[2022-05-07] MEDS ORDERED: Nebivolol HCl 5 MG TAB PO SCH (09:00)
[2022-05-07] MEDS ORDERED: Amlodipine 5 MG TAB PO SCH ×2 (09:00)
[2022-05-07] MEDS ORDERED: predniSONE 20 MG TAB PO SCH (09:45)
[2022-05-07] MEDS ORDERED: Sodium Chloride 0.9% 1,000 ML IV SCH ×2 (11:30)
[2022-05-07] MEDS: Doxazosin Mesylate 4 MG TAB PO SCH (20:31)
[2022-05-08 05:14] LABS: #Basophils 0.1 thou/uL (0.0-0.2); #Lymphocytes 1.1 thou/uL (1.20-3.40); #Monocytes 0.7 thou/uL (0.11-0.59); #Neutrophils 5.3 thou/uL (1.40-6.50); %Basophils 1.5 % (0.0-1.0); %Eosinophils 0.1 % (0.0-10.0); %Lymphocytes 15.1 % (21.0-51.0); %Monocytes 9.8 % (0.0-10.0); %Neutrophils 73.6 % (42.0-75.0); Hemoglobin 10.1 g/dL (14.0-18.0); Mean Corpuscular HGB CONC 33.7 g/dL (32.0-36.0); Mean Corpuscular Hemoglobin 33.7 pg (27.0-31.0); Mean Platelet Volume 7.1 fL (7.4-10.4); Platelet Count 146 thou/uL (130-400); RBC Distribution Width 13.7 % (11.5-14.5); Red Blood Cell (RBC) Count 3.01 mill/uL (4.70-6.10); White Blood Cell (WBC) Count 7.3 thou/uL (4.8-10.8)
[2022-05-08 05:36] LABS: Anion Gap 14 mmol/L (10-20); BUN (Urea Nitrogen) 41 mg/dL (8.4-25.7); Calc. Creatinine Clearance 21 mL/min (70-130); Calcium 10.3 mg/dL (7.8-10.44); Carbon Dioxide 23 mmol/L (23-31); Chloride 104 mmol/L (98-107); Estimated GFR 15; Glucose 117 mg/dL (83-110); Potassium 3.6 mmol/L (3.5-5.1); Sodium 137 mmol/L (136-145)
[2022-05-08] MEDS: predniSONE 20 MG TAB PO SCH (09:11)
[2022-05-08] MEDS: Amlodipine 10 MG TAB PO SCH (09:12)
[2022-05-08] MEDS: Fish Oil 1,000 MG CAP PO SCH (09:13)
[2022-05-08] MEDS: Levothyroxine 150 MCG TAB PO SCH (09:14)
[2022-05-08] MEDS: Sodium Bicarbonate Tab 325 MG TAB PO SCH ×3 (09:14→20:46)
[2022-05-08] MEDS: Nebivolol HCl 5 MG TAB PO SCH (09:14)
[2022-05-08] MEDS: Colchicine 0.6 MG TAB PO SCH (09:25)
[2022-05-08] MEDS: Famotidine 20 MG TAB PO SCH (09:25)
[2022-05-08] MEDS ORDERED: Polyethylene Glycol 3350 17 GM Packet PO PRN (12:53)
[2022-05-08] MEDS ORDERED: hydrALAZINE 20 MG/ML VIAL SLOW IVP PRN (13:07)
[2022-05-08] MEDS: Folic Acid 1 MG TAB PO SCH (20:46)
[2022-05-08] MEDS: Doxazosin Mesylate 4 MG TAB PO SCH (20:46)
[2022-05-08] MEDS: Cyanocobalamin (Vitamin B-12) 1,000 MCG TAB PO SCH (20:46)
[2022-05-08] MEDS ORDERED: Famotidine 20 MG TAB PO SCH (21:00)
[2022-05-09 04:47] LABS: #Lymphocytes 1.4 thou/uL (1.20-3.40); #Monocytes 0.6 thou/uL (0.11-0.59); #Neutrophils 4.6 thou/uL (1.40-6.50); %Basophils 0.1 % (0.0-1.0); %Eosinophils 0.1 % (0.0-10.0); %Lymphocytes 21.5 % (21.0-51.0); %Monocytes 9.5 % (0.0-10.0); %Neutrophils 68.8 % (42.0-75.0); Hemoglobin 10.4 g/dL (14.0-18.0); Mean Corpuscular HGB CONC 33.9 g/dL (32.0-36.0); Mean Corpuscular Hemoglobin 33.5 pg (27.0-31.0); Mean Corpuscular Volume 98.6 fL (78.0-98.0); Mean Platelet Volume 7.1 fL (7.4-10.4); Platelet Count 149 thou/uL (130-400); RBC Distribution Width 13.6 % (11.5-14.5); White Blood Cell (WBC) Count 6.7 thou/uL (4.8-10.8)
[2022-05-09 05:06] LABS: Anion Gap 14 mmol/L (10-20); BUN (Urea Nitrogen) 45 mg/dL (8.4-25.7); Calc. Creatinine Clearance 22 mL/min (70-130); Calcium 9.8 mg/dL (7.8-10.44); Carbon Dioxide 23 mmol/L (23-31); Chloride 106 mmol/L (98-107); Estimated GFR 15; Glucose 109 mg/dL (83-110); Potassium 3.5 mmol/L (3.5-5.1); Sodium 139 mmol/L (136-145)
[2022-05-09] MEDS: Colchicine 0.6 MG TAB PO SCH (09:12)
[2022-05-09] MEDS: Amlodipine 10 MG TAB PO SCH (09:12)
[2022-05-09] MEDS: predniSONE 20 MG TAB PO SCH (09:12)
[2022-05-09] MEDS: Nebivolol HCl 5 MG TAB PO SCH (09:13)
[2022-05-09] MEDS: Sodium Bicarbonate Tab 325 MG TAB PO SCH ×3 (09:13→21:15)
[2022-05-09] MEDS: Famotidine 20 MG TAB PO SCH (09:13)
[2022-05-09] MEDS: Fish Oil 1,000 MG CAP PO SCH (09:13)
[2022-05-09] MEDS: Levothyroxine 150 MCG TAB PO SCH (09:13)
[2022-05-09] MEDS: Sodium Bicarbonate 50 MEQ in Sodium Chloride 0.45% 1,000 ML IV SCH ×2 (10:04→22:15)
[2022-05-09] MEDS ORDERED: Potassium Chloride 20 MEQ TAB PO SCH (17:00)
[2022-05-09] MEDS: Cyanocobalamin (Vitamin B-12) 1,000 MCG TAB PO SCH (21:15)
[2022-05-09] MEDS: Folic Acid 1 MG TAB PO SCH (21:15)
[2022-05-09] MEDS: Doxazosin Mesylate 4 MG TAB PO SCH (21:16)
[2022-05-10 05:03] LABS: #Lymphocytes 1.5 thou/uL (1.20-3.40); #Monocytes 0.6 thou/uL (0.11-0.59); #Neutrophils 3.3 thou/uL (1.40-6.50); %Basophils 0.3 % (0.0-1.0); %Eosinophils 0.2 % (0.0-10.0); %Lymphocytes 27.2 % (21.0-51.0); %Monocytes 11.7 % (0.0-10.0); %Neutrophils 60.6 % (42.0-75.0); Mean Corpuscular HGB CONC 34.8 g/dL (32.0-36.0); Mean Corpuscular Hemoglobin 34.8 pg (27.0-31.0); Mean Platelet Volume 7.2 fL (7.4-10.4); Platelet Count 145 thou/uL (130-400); RBC Distribution Width 13.2 % (11.5-14.5); Red Blood Cell (RBC) Count 3.17 mill/uL (4.70-6.10); White Blood Cell (WBC) Count 5.4 thou/uL (4.8-10.8)
[2022-05-10 05:25] LABS: Anion Gap 12 mmol/L (10-20); BUN (Urea Nitrogen) 42 mg/dL (8.4-25.7); Calc. Creatinine Clearance 25 mL/min (70-130); Calcium 9.5 mg/dL (7.8-10.44); Carbon Dioxide 23 mmol/L (23-31); Chloride 106 mmol/L (98-107); Estimated GFR 18; Glucose 92 mg/dL (83-110); Potassium 3.3 mmol/L (3.5-5.1); Sodium 138 mmol/L (136-145)
[2022-05-10] MEDS: Levothyroxine 150 MCG TAB PO SCH (05:37)
[2022-05-10] MEDS ORDERED: Potassium Chloride 20 MEQ TAB PO SCH (06:00)
[2022-05-10] MEDS: Amlodipine 10 MG TAB PO SCH (08:16)
[2022-05-10] MEDS: Colchicine 0.6 MG TAB PO SCH (08:17)
[2022-05-10] MEDS: Nebivolol HCl 5 MG TAB PO SCH (08:17)
[2022-05-10] MEDS: Famotidine 20 MG TAB PO SCH (08:17)
[2022-05-10] MEDS: predniSONE 20 MG TAB PO SCH (08:17)
[2022-05-10] MEDS: Sodium Bicarbonate Tab 325 MG TAB PO SCH ×3 (08:17→20:24)
[2022-05-10] MEDS: Fish Oil 1,000 MG CAP PO SCH (08:17)
[2022-05-10 09:36] LABS: Magnesium 1.8 mg/dL (1.6-2.6)
[2022-05-10] MEDS: Cyanocobalamin (Vitamin B-12) 1,000 MCG TAB PO SCH (20:24)
[2022-05-10] MEDS: Folic Acid 1 MG TAB PO SCH (20:24)
[2022-05-10] MEDS: Doxazosin Mesylate 4 MG TAB PO SCH (20:24)
[2022-05-11 05:06] LABS: #Lymphocytes 1.6 thou/uL (1.20-3.40); #Monocytes 0.7 thou/uL (0.11-0.59); #Neutrophils 3.1 thou/uL (1.40-6.50); %Basophils 0.4 % (0.0-1.0); %Eosinophils 0.2 % (0.0-10.0); %Monocytes 13.3 % (0.0-10.0); %Neutrophils 57.2 % (42.0-75.0); Hemoglobin 11.1 g/dL (14.0-18.0); Mean Corpuscular HGB CONC 33.1 g/dL (32.0-36.0); Mean Corpuscular Hemoglobin 33.1 pg (27.0-31.0); Mean Corpuscular Volume 99.8 fL (78.0-98.0); Mean Platelet Volume 7.1 fL (7.4-10.4); Platelet Count 156 thou/uL (130-400); RBC Distribution Width 13.3 % (11.5-14.5); Red Blood Cell (RBC) Count 3.35 mill/uL (4.70-6.10); White Blood Cell (WBC) Count 5.4 thou/uL (4.8-10.8)
[2022-05-11 05:25] LABS: Anion Gap 14 mmol/L (10-20); BUN (Urea Nitrogen) 44 mg/dL (8.4-25.7); Calc. Creatinine Clearance 25 mL/min (70-130); Calcium 9.5 mg/dL (7.8-10.44); Carbon Dioxide 21 mmol/L (23-31); Chloride 107 mmol/L (98-107); Estimated GFR 18; Glucose 89 mg/dL (83-110); Potassium 3.5 mmol/L (3.5-5.1); Sodium 138 mmol/L (136-145)
[2022-05-11] MEDS ORDERED: Potassium Chloride 20 MEQ TAB PO SCH (06:30)
[2022-05-11] MEDS: Levothyroxine 150 MCG TAB PO SCH (06:50)
[2022-05-11] MEDS: Amlodipine 10 MG TAB PO SCH (08:40)
[2022-05-11] MEDS: Colchicine 0.6 MG TAB PO SCH (08:40)
[2022-05-11] MEDS: Famotidine 20 MG TAB PO SCH (08:40)
[2022-05-11] MEDS: Fish Oil 1,000 MG CAP PO SCH (08:41)
[2022-05-11] MEDS: Sodium Bicarbonate Tab 325 MG TAB PO SCH ×2 (08:41→15:23)
[2022-05-11] MEDS: Nebivolol HCl 5 MG TAB PO SCH (08:41)
[2022-05-11] MEDS: predniSONE 20 MG TAB PO SCH (08:41)
[2022-05-11] MEDS ORDERED: Fentanyl 100 MCG/2 ML VIAL ONE (09:42)
[2022-05-11] MEDS ORDERED: Sodium Bicarbonate 2.5 MEQ/5 ML VIAL ONE (09:42)
[2022-05-11 16:09] VITALS: BP 142/77; TEMP 97.7
== END 2022-05-11 18:54 | disposition home or self-care (01) | DRG 682 ==
LOC: ERS 09:16 → 2SW 14:01 → OBSVTOIN 05-08 14:13
PROVIDERS: ADMIT Internal Medicine; ATTEND Internal Medicine
PROC: 0TB03ZX Excision of Right Kidney, Percutaneous Approach, Diagnostic (ICD-10-PCS; principal; 2022-05-11)
DX: N17.9 Acute kidney failure, unspecified (principal); G93.41 Metabolic encephalopathy; E87.2 Acidosis; I50.32 Chronic diastolic (congestive) heart failure; I13.0 Hypertensive heart and chronic kidney disease with heart failure and stage 1 through stage 4 chronic kidney disease, or unspecified chronic kidney disease; N18.4 Chronic kidney disease, stage 4 (severe); I25.10 Atherosclerotic heart disease of native coronary artery without angina pectoris; E03.9 Hypothyroidism, unspecified; E83.52 Hypercalcemia; E87.6 Hypokalemia; R00.1 Bradycardia, unspecified; I16.0 Hypertensive urgency; R91.1 Solitary pulmonary nodule; N40.0 Benign prostatic hyperplasia without lower urinary tract symptoms; R77.8 Other specified abnormalities of plasma proteins; Z20.822 Contact with and (suspected) exposure to COVID-19; E66.9 Obesity, unspecified; Z68.34 Body mass index [BMI] 34.0-34.9, adult; I25.2 Old myocardial infarction; Z91.040 Latex allergy status; Z91.013 Allergy to seafood; Z91.041 Radiographic dye allergy status; Z95.5 Presence of coronary angioplasty implant and graft; Z79.899 Other long term (current) drug therapy; Z79.82 Long term (current) use of aspirin; Z79.890 Hormone replacement therapy; Z95.0 Presence of cardiac pacemaker; Z98.890 Other specified postprocedural states; Z90.49 Acquired absence of other specified parts of digestive tract; Z82.3 Family history of stroke; Z86.2 Personal history of diseases of the blood and blood-forming organs and certain disorders involving the immune mechanism
CPT/HCPCS: 36415; 50200; 77002; 80048; 80053; 83735; 83880; 84100; 84484; 85025; 85610; 85730; 88329; 93005; 96361; 96374; 96375; 96376; G0378; J0360; J1940; J3010; J7512; U0002

== ENCOUNTER 2023-04-15 00:36 | Observation (INO) | payer MEDICARE ==
[2023-04-15] MEDS ORDERED: Aspirin Chewable 81 MG TAB ONE (01:06)
[2023-04-15] MEDS ORDERED: Nitroglycerin 0.4 MG TAB 1 EACH ONE (01:06)
[2023-04-15 01:35] LABS: #Eosinphils 0.1 thou/uL (0.0-0.7); #Monocytes 0.8 thou/uL (0.11-0.59); #Neutrophils 3.3 thou/uL (1.40-6.50); %Basophils 0.7 % (0.0-1.0); %Eosinophils 2.4 % (0.0-10.0); %Lymphocytes 27.6 % (21.0-51.0); %Neutrophils 56.1 % (42.0-75.0); Hematocrit 39.7 % (42.0-52.0); Hemoglobin 13.3 g/dL (14.0-18.0); Mean Corpuscular HGB CONC 33.5 g/dL (32.0-36.0); Mean Corpuscular Hemoglobin 32.5 pg (27.0-31.0); Mean Corpuscular Volume 97.1 fl (78.0-98.0); Mean Platelet Volume 8.8 fL (7.4-10.4); Platelet Count 149 10x3/uL (130-400); RBC Distribution Width 14.6 % (11.5-14.5); Red Blood Cell (RBC) Count 4.09 mill/uL (4.70-6.10); White Blood Cell (WBC) Count 5.8 10x3/uL (4.8-10.8)
[2023-04-15 01:59] LABS: ALT (SGPT) 18 U/L (8-55); AST (SGOT) 22 U/L (5-34); Albumin 3.9 g/dL (3.4-4.8); Alkaline Phosphatase 72 U/L (40-110); Anion Gap 14 mmol/L (10-20); BUN (Urea Nitrogen) 34 mg/dL (8.4-25.7); Bilirubin, Total 0.4 mg/dL (0.2-1.2); Calc. Creatinine Clearance 0 mL/min (70-130); Calcium 9.8 mg/dL (7.8-10.44); Carbon Dioxide 23 mmol/L (23-31); Chloride 108 mmol/L (98-107); Estimated GFR 24; Globulin 3.2 g/dL (2.4-3.5); Glucose 102 mg/dL (83-110); Lipase 54 U/L (8-78); Potassium 4.4 mmol/L (3.5-5.1); Protein, Total 7.1 g/dL (5.8-8.1); Sodium 141 mmol/L (136-145)
[2023-04-15] MEDS ORDERED: Acetaminophen 325 MG TAB PO PRN (03:10)
[2023-04-15] MEDS ORDERED: Senokot S 8.6-50 MG TAB PO PRN (03:10)
[2023-04-15] MEDS ORDERED: Calcium Carbonate 500 MG ChewTAB PO PRN (03:10)
[2023-04-15] MEDS ORDERED: Ondansetron ODT 4 MG TAB PO PRN (03:10)
[2023-04-15 04:09] VITALS: BMI 36.6
[2023-04-15 04:46] LABS: #Basophils 0.1 thou/uL (0.0-0.2); #Eosinphils 0.2 thou/uL (0.0-0.7); #Monocytes 0.8 thou/uL (0.11-0.59); #Neutrophils 3.1 thou/uL (1.40-6.50); %Basophils 0.8 % (0.0-1.0); %Eosinophils 2.8 % (0.0-10.0); %Lymphocytes 31.6 % (21.0-51.0); %Monocytes 13.8 % (0.0-10.0); %Neutrophils 50.8 % (42.0-75.0); Hemoglobin 13.3 g/dL (14.0-18.0); Mean Corpuscular HGB CONC 34.1 g/dL (32.0-36.0); Mean Corpuscular Hemoglobin 33.1 pg (27.0-31.0); Mean Platelet Volume 8.8 fL (7.4-10.4); Platelet Count 140 10x3/uL (130-400); RBC Distribution Width 14.6 % (11.5-14.5); Red Blood Cell (RBC) Count 4.02 mill/uL (4.70-6.10)
[2023-04-15] MEDS ORDERED: Nitroglycerin 0.4 MG TAB (25 Tab Bottle) SL PRN (04:49)
[2023-04-15 05:01] LABS: Anion Gap 13 mmol/L (10-20); BUN (Urea Nitrogen) 32 mg/dL (8.4-25.7); Calc. Creatinine Clearance 37 mL/min (70-130); Calcium 9.2 mg/dL (7.8-10.44); Carbon Dioxide 23 mmol/L (23-31); Chloride 107 mmol/L (98-107); Estimated GFR 26; Glucose 77 mg/dL (83-110); Sodium 139 mmol/L (136-145)
[2023-04-15 05:06] LABS: Troponin I Less than 0.010 ng/mL (< 0.028)
[2023-04-15] MEDS ORDERED: Lidocaine 2% Viscous Solution 10 ML, Aluminum & Magnesium Hydroxide 30 ML SSW SCH (05:15)
[2023-04-15] MEDS ORDERED: Levothyroxine 150 MCG TAB PO SCH (06:00)
[2023-04-15 07:26] LABS: Troponin I 0.018 ng/mL (< 0.028)
[2023-04-15] MEDS ORDERED: Aspirin 81 mg Enteric Coated Tablet PO SCH (08:00)
[2023-04-15] MEDS ORDERED: Sodium Bicarbonate Tab 325 MG TAB PO SCH (08:00)
[2023-04-15] MEDS ORDERED: Amlodipine 5 MG TAB PO SCH (08:00)
[2023-04-15] MEDS ORDERED: Nebivolol HCl 5 MG TAB PO SCH (08:00)
[2023-04-15] MEDS ORDERED: Fish Oil 1,000 MG CAP PO SCH (08:00)
[2023-04-15] MEDS ORDERED: Empagliflozin 25 MG TAB PO SCH (08:00)
[2023-04-15] MEDS ORDERED: predniSONE 5 MG TAB PO SCH (08:00)
[2023-04-15] MEDS ORDERED: Famotidine 20 MG TAB PO SCH (09:00)
[2023-04-15] MEDS ORDERED: Aspirin Chewable 81 MG TAB PO SCH (09:00)
[2023-04-15] MEDS ORDERED: ADENOSINE 60 MG/20 ML SDV ONE (11:29)
[2023-04-15] MEDS ORDERED: Cholecalciferol 1,000 UNITS (25 MCG) TAB PO SCH (12:00)
[2023-04-15 12:55] VITALS: BP 132/84; TEMP 97.7
[2023-04-15] MEDS ORDERED: Ferrous Sulfate 325 MG TAB PO SCH (17:00)
[2023-04-15] MEDS ORDERED: Clopidogrel Bisulfate 75 MG TAB PO SCH (17:00)
[2023-04-15] MEDS ORDERED: Doxazosin Mesylate 4 MG TAB PO SCH (21:00)
== END 2023-04-15 15:30 | disposition home or self-care (01) ==
LOC: ERS 00:36 → 2NO 02:33
PROVIDERS: ADMIT Student in an Organized Health Care Education/Training Program; ATTEND Internal Medicine
DX: I13.0 Hypertensive heart and chronic kidney disease with heart failure and stage 1 through stage 4 chronic kidney disease, or unspecified chronic kidney disease (principal); I50.30 Unspecified diastolic (congestive) heart failure; N18.9 Chronic kidney disease, unspecified; E03.9 Hypothyroidism, unspecified; I25.10 Atherosclerotic heart disease of native coronary artery without angina pectoris; Z91.048 Other nonmedicinal substance allergy status; Z91.013 Allergy to seafood; Z79.02 Long term (current) use of antithrombotics/antiplatelets; Z79.82 Long term (current) use of aspirin; Z91.041 Radiographic dye allergy status; Z90.49 Acquired absence of other specified parts of digestive tract; Z95.0 Presence of cardiac pacemaker; Z98.890 Other specified postprocedural states; Z79.899 Other long term (current) drug therapy
CPT/HCPCS: 71045; 78452; 80048; 80053; 83690; 84484 ×2; 85025 ×2; 93005; 93017; 94760; 99285; A9500; G0378 ×2; 36415; J0153; J7512